=== PATIENT | female | born 1955 | race Caucasian/White ===

== ENCOUNTER 2021-05-11 15:52 | Emergency (ER) | payer MEDICARE ==
[2021-05-11] MEDS ORDERED: Sodium Chloride 0.9% 10 ML Syringe FLUSH PRN ×2 (17:44)
--- NOTE | 2021-05-11 17:51 | EDM.PDOC ---
<OfficerMiguel Angel - Last Filed: 05/11/21 18:24> ED HPI GENERAL MEDICAL PROBLEM - General Chief Complaint: Neuro Symptoms/Deficits Stated Complaint: NUMBNESS AND TINGLING Time Seen by Provider: 05/11/21 17:33 Source of Information: Reports: Patient, RN Notes Reviewed History Limitations: Reports: No Limitations - History of Present Illness INITIAL COMMENTS - FREE TEXT/NARRATIVE: 66-year-old female presents emergency department day with right facial numbness, she has a history of CVA related to chronic hypertension however she is never seen neurology no history of MRI completed this is per her history per her report. She states since last August she has had left-sided facial numbness and numbness and tingling in digits 2 and 3 with reduced strength. This morning at about 6 AM so approximately 12 hours prior she developed some numbness and tingling on the right side of her mouth and this is a progression from midline to the lateral aspect of her mouth however she has no focal neurologic deficit. Does admit to missing a few doses of Plavix - Related Data Allergies Allergy/AdvReac Type Severity Reaction Status Date / Time Penicillins Allergy Swelling Verified 09/24/14 07:24 Home Meds: Home Meds Aspirin [Ecotrin EC] 81 mg PO DAILY 05/11/21 [History] Clopidogrel [Plavix] 1 tab PO DAILY 05/11/21 [History] Fluticasone Propion/Salmeterol [Fluticasone-Salmeterol 250-50] 1 puff IH DAILY 05/11/21 [History] buPROPion HCL [Bupropion Xl] 1 tab PO DAILY 05/11/21 [History] lisinopriL [Lisinopril] 30 mg PO DAILY 05/11/21 [History] Past Medical History Cardiovascular History: Reports: High Cholesterol, Hypertension, PVD Respiratory History: Reports: COPD AUCTIONEER TOBACCO History: Reports: None Neurological History: Reports: CVA, TIA Psychiatric History: Reports: Addiction, Anxiety - Infectious Disease History Infectious Disease History: Reports: None - Past Surgical History Cardiovascular Surgical History: Reports: None, Other (See Below) Other Cardiovascular Surgeries/Procedures: stent behind right knee GI Surgical History: Reports: None Female Surgical History: Reports: None Dermatological Surgical History: Reports: None Social & Family History - Family History Family Medical History: No Pertinent Family History - Tobacco Use Tobacco Use Status *Q: Current Every Day Tobacco User Years of Tobacco use: 51 Packs/Tins Daily: 0.7 - Caffeine Use Caffeine Use: Reports: Coffee - Alcohol Use Number of Drinks Per Day: 7 - Recreational Drug Use Recreational Drug Use: No ED ROS GENERAL - Review of Systems Review Of Systems: See Below Constitutional: Reports: No Symptoms HEENT: Reports: No Symptoms Respiratory: Reports: No Symptoms Cardiovascular: Reports: No Symptoms GI/Abdominal: Reports: No Symptoms : Reports: No Symptoms Neurological: Reports: Numbness, Tingling ED EXAM, NEURO - Physical Exam Exam: See Below Exam Limited By: No Limitations General Appearance: Alert, WD/WN, No Apparent Distress Eye Exam: Bilateral Eye: EOMI, Normal Inspection, PERRL Throat/Mouth: Normal Inspection, Normal Lips, Normal Teeth, Normal Gums, Normal Oropharynx, Normal Voice, No Airway Compromise Head Exam: Atraumatic, Normocephalic Neck: Normal Inspection, Supple, Non-Tender, Full Range of Motion Respiratory/Chest: No Respiratory Distress, Lungs Clear, Normal Breath Sounds, No Accessory Muscle Use, Chest Non-Tender Cardiovascular: Regular Rate, Rhythm, No Murmur Neurological: Alert, Normal Mood/Affect, CN II-XII Intact, Normal Gait, No Motor/Sensory Deficits, Oriented x 3 #1 Interpretation EKG Date: 05/11/21 Time: 18:17 Rhythm: NSR [place]: Normal P-Wave: Present QRS: Normal ST-T: Normal QT: Normal Comparison: NA - No Prior EKG Departure - Departure Disposition: Home, Self-Care 01 Clinical Impression: Facial asymmetries, Hypertension - Discharge Information Instructions: Hypertension, Adult, [id number], Managing Your Hypertension, Transient Ischemic Attack, [id number] Referrals: Patrick Dahl MD [Primary Care Provider] - Forms: ED Department Discharge Additional Instructions: As discussed it is recommended that you follow-up with your primary care provider for further evaluation of today's neurological symptoms this may include an MRI of your brain Sepsis Event Note (ED) - Evaluation Sepsis Screening Result: No Definite Risk <Ayla Dawkins - Last Filed: 05/11/21 21:22> Course - Vital Signs Last Recorded V/S: Last Vital Signs Temp 97.6 F 05/11/21 17:14 Pulse 63 05/11/21 20:21 Resp 21 H 05/11/21 20:21 BP 183/76 H 05/11/21 20:21 Pulse Ox 98 05/11/21 20:21 - Orders/Labs/Meds Orders: Active Orders 24 hr Category Date Time Status EKG Documentation Completion [RC] ASDIRECTED Care 05/11/21 17:46 Active Peripheral IV Care [RC] . DIRECTED Care 05/11/21 17:46 Active Iopamidol [Isovue-370 (76%)] Med 05/11/21 19:00 Active 100 ml IV . DIRECTED Sodium Chloride 0.9% [Normal Saline] 100 ml Med 05/11/21 19:00 Active IV ASDIRECTED Sodium Chloride 0.9% [Saline Flush] Med 05/11/21 17:44 Active 10 ml FLUSH ASDIRECTED PRN Sodium Chloride 0.9% [Saline Flush] Med 05/11/21 17:44 Active 10 ml FLUSH ASDIRECTED PRN Peripheral IV Insertion Adult [OM.PC] Urgent Oth 05/11/21 17:44 Ordered EKG 12 Lead [EK] Stat Ther 05/11/21 17:44 Ordered Medication Orders Sodium Chloride (Normal Saline) 100 mls @ 3.5 mls/sec IV ASDIRECTED [facility] Last Admin: 05/11/21 20:35 Dose: 4 mls/sec Documented by: VU Iopamidol (Iopamidol 755 Mg/Ml 100 Ml Bottle) 100 ml IV . DIRECTED [facility] Last Admin: 05/11/21 20:35 Dose: 100 ml Documented by: VU Sodium Chloride (Sodium Chloride 0.9% 10 Ml Syringe) 10 ml FLUSH ASDIRECTED PRN PRN Reason: Keep Vein Open Last Admin: 05/11/21 18:01 Dose: 10 ml Documented by: ZECHARIAH Sodium Chloride (Sodium Chloride 0.9% 10 Ml Syringe) 10 ml FLUSH ASDIRECTED PRN PRN Reason: Keep Vein Open Last Admin: 05/11/21 18:01 Dose: 10 ml Documented by: ZECHARIAH Labs: Laboratory Tests 05/11/21 05/11/21 Range/Units 17:55 17:55 WBC 6.3 (4.5-11.0) K/uL RBC 4.75 (3.30-5.50) M/uL Hgb 14.6 (12.0-15.0) g/dL Hct 45.6 (36.0-48.0) % MCV 96 (80-98) fL MCH 31 (27-31) pg MCHC 32 (32-36) % Plt Count 184 (150-400) K/uL Neut % (Auto) 44.0 (36-66) % Lymph % (Auto) 42.1 (24-44) % [place] % (Auto) 10.4 H (2-6) % Eos % (Auto) 2.9 (2-4) % Baso % (Auto) 0.6 (0-1) % Sodium 144 (140-148) mmol/L Potassium 4.3 (3.6-5.2) mmol/L Chloride 106 (100-108) mmol/L Carbon Dioxide 30 (21-32) mmol/L Anion Gap 8.1 (5.0-14.0) mmol/L BUN 11 (7-18) mg/dL Creatinine 0.9 (0.6-1.0) mg/dL Est Cr Clr Drug Dosing 52.75 mL/min Estimated GFR (MDRD) > 60 (>60) Glucose 73 L (74-106) mg/dL Calcium 8.6 (8.5-10.1) mg/dL Total Bilirubin 0.3 (0.2-1.0) mg/dL AST 30 (15-37) U/L ALT 34 (12-78) U/L Alkaline Phosphatase 81 (46-116) U/L Troponin I < 0.017 (0.000-0.056) ng/mL Total Protein 6.4 (6.4-8.2) g/dL Albumin 3.7 (3.4-5.0) g/dL Globulin 2.7 (2.3-3.5) g/dL Albumin/Globulin Ratio 1.4 (1.2-2.2) Meds: Medications Generic Name Dose Route Start Last Admin Trade Name Freq PRN Reason Stop Dose Admin Sodium Chloride 100 mls @ 3.5 mls/sec 05/11/21 19:00 05/11/21 20:35 Normal Saline IV 4 mls/sec ASDIRECTED SHAMA Administration Iopamidol 100 ml 05/11/21 19:00 05/11/21 20:35 Iopamidol 755 Mg/Ml 100 Ml Bottle IV 100 ml . DIRECTED SHAMA Administration Sodium Chloride 10 ml 05/11/21 17:44 05/11/21 18:01 Sodium Chloride 0.9% 10 Ml Syringe FLUSH 10 ml ASDIRECTED PRN Administration Keep Vein Open Sodium Chloride 10 ml 05/11/21 17:44 05/11/21 18:01 Sodium Chloride 0.9% 10 Ml Syringe FLUSH 10 ml ASDIRECTED PRN Administration Keep Vein Open Discontinued Medications Generic Name Dose Route Start Last Admin Trade Name Kelly PRN Reason Stop Dose Admin Nitroglycerin 0.4 mg 05/11/21 18:37 05/11/21 20:19 Nitroglycerin 0.4 Mg Tab.Sl SL 05/11/21 18:38 Not Given ONETIME ONE Sodium Chloride 10 ml 05/11/21 18:57 05/11/21 20:35 Sodium Chloride 0.9% 10 Ml Syringe FLUSH 05/11/21 18:58 10 ml ONETIME ONE Administration - Radiology Interpretation Free Text/Narrative:: Full reports that are faxed and scanned into chart for CTA head and neck as well as CT head without contrast CT Results Date: 05/11/21 (CT head impression no CT evidence of acute intracranial abnormality) CT Results Time: 21:19 (CTA head and neck no acute occlusions stenosis or evidence of dissection or aneurysm identified) - Re-Assessments/Exams Free Text/Narrative Re-Assessment/Exam: 05/11/21 19:[address] Benson, ER at change of shift/transfer of care. CT Head/CTA Head-neck pending at this time. last known well is reported by Dr Benson to be 0600 today thus she is outside of window for intervention. If negative CT/CTA then outpatient f/u for further evaluation with PCM, if positive new finding on CT/CTA then transfer to higher level of care. 05/11/21 20:42 updated patient and family at bedside that labs have returned and been reviewed no Acute concerns are noted troponin is negative at this time we are waited for CT head and CTA of head and neck test has been performed we are waiting on radiology reading at this time 05/11/21 21:20 Roxane with patient and family at bedside today's ER findings recommendation for primary care follow-up to include further evaluation of today's symptoms which may include brain MRI and/or referral to neurology I also did discuss with her importance of medications on a regular basis to include her Plavix as well as smoking cessation patient family verbalized understanding agreement ready for discharge Departure - Departure Time of Disposition: 21:20 Condition: Good - Discharge Information *PRESCRIPTION DRUG MONITORING PROGRAM REVIEWED*: Not Applicable *COPY OF PRESCRIPTION DRUG MONITORING REPORT IN PATIENT RAHUL: Not Applicable Sepsis Event Note (ED) - Focused Exam Vital Signs: Vital Signs Temp Pulse Resp BP Pulse Ox 05/11/21 20:21 63 21 H 183/76 H 98 05/11/21 18:59 64 22 H 210/84 H 98 05/11/21 17:44 56 L 13 191/80 H 98 05/11/21 17:14 97.6 F 60 18 193/72 H 97
[2021-05-11] MEDS ORDERED: Nitroglycerin 0.4 MG Tab.SL SL ONE (18:37)
[2021-05-11] MEDS ORDERED: Iopamidol 755 Mg/ML 100 ML Bottle IV SCH (19:00)
[2021-05-11] MEDS ORDERED: Sodium Chloride 0.9% 100 ML IV SCH (19:00)
[2021-05-11] MEDS: Sodium Chloride 0.9% 10 ML Syringe FLUSH ONE ×2 (20:19→20:35)
--- NOTE | 2021-05-11 20:58 | CRLCT ---
For Patients: As a result of the Century Cures Act, medical imaging exams and procedure reports are released immediately into your electronic medical record. You may view this report before your referring provider. If you have questions, please contact your health care provider. INDICATION: Right-sided facial numbness. TECHNIQUE: Axial images. Sagittal and coronal reconstructions. COMPARISON: 12/16/2020. FINDINGS: There is no abnormal intracranial mass effect or midline shift. No acute intracranial hemorrhage. Mild periventricular white matter changes are likely related to chronic small vessel disease. Small lacunar infarcts are again seen in the right side of the thalamus and basal ganglia. There is no appreciable loss of the normal [place]ail-white matter differentiation. CSF spaces are age-appropriate. No acute osseous abnormality. The visualized portions of the paranasal sinuses and mastoids are clear. IMPRESSION: No CT evidence of an acute intracranial abnormality. Dictated by Maximiliano Garcia MD @ 05/11/2021 8:55:38 PM Please note that all CT scans at this facility use dose modulation, iterative reconstruction, and/or weight-based dosing when appropriate to reduce radiation dose to as low as reasonably achievable. Dictated by: Maximiliano Garcia MD @ 05/11/2021 20:56:28 (Electronically Signed)
--- NOTE | 2021-05-11 21:14 | CRLCT ---
For Patients: As a result of the Century Cures Act, medical imaging exams and procedure reports are released immediately into your electronic medical record. You may view this report before your referring provider. If you have questions, please contact your health care provider. DATE: 05/11/2021 CLINICAL HISTORY: Patient with right facial numbness. TECHNIQUE: Standard helical CT image acquisition through the head and neck was performed after intravenous contrast bolus enhancement. Multiplanar reconstructed images were performed and interpreted. COMPARISON: CT same day FINDINGS: The origins of the great vessels from the aortic arch are patent. The origin of the right vertebral artery demonstrates moderate narrowing. The origin of the left vertebral artery demonstrates moderate narrowing. The common carotid arteries are patent There is a mild (<50%) stenosis at the origin of the right internal carotid artery by NASCET criteria. This is caused by calcified plaque with a <2mm residual lumen. There is plaques without stenosis at the origin of the left internal carotid artery by NASCET criteria. The rest of the cervical segments of the internal carotid arteries are patent up to their intracranial segments. The intracranial segments of the internal carotid arteries are patent. The vertebral arteries are codominant. The cervical segments of the vertebral arteries are patent. The intracranial segments of the vertebral arteries are patent. There is mild to moderate diffuse intracranial atherosclerosis. The visualized lung apices demonstrate emphysematous changes. The thyroid gland is unremarkable. The soft tissues of the neck are unremarkable. There are degenerative changes in the cervical spine. IMPRESSION: 1. No proximal intracranial large vessel occlusion. 1. Mild to moderate diffuse intracranial atherosclerosis. 3. Mild (<50%) stenosis at the origin of the right internal carotid artery by NASCET criteria caused by calcified plaque with a <2mm residual lumen. 4. Moderate bilateral vertebral artery origin stenosis. Please note that all CT scans at this facility use dose modulation, iterative reconstruction, and/or weight-based dosing when appropriate to reduce radiation dose to as low as reasonably achievable. Dictated by Qi Haq MD @ 05/11/2021 10:21:[address] Qi Haq @ May 11 2021 10:21PM
== END 2021-05-11 21:34 | disposition home or self-care (01) ==
LOC: JP.ED 15:52
DX: I10 Essential (primary) hypertension (principal); J44.9 Chronic obstructive pulmonary disease, unspecified; Z86.73 Personal history of transient ischemic attack (TIA), and cerebral infarction without residual deficits; Z79.82 Long term (current) use of aspirin; Z79.02 Long term (current) use of antithrombotics/antiplatelets; Z79.899 Other long term (current) drug therapy; Z72.0 Tobacco use; Z88.0 Allergy status to penicillin; Q67.0 Congenital facial asymmetry
CPT/HCPCS: 36415; 70450; 70496; 70498; 80053; 84484; 85025; 93005; 99284; Q9967

== ENCOUNTER → 2023-04-06 | Day surgery (SDC) | payer MEDICARE ==
[~2023-04-06] MED LIST: Sodium Chloride 0.9% 10 ML Syringe FLUSH PRN
== END ==
LOC: JP.SDS 09:23
PROVIDERS: ATTEND Ophthalmology
DX: H26.9 Unspecified cataract (principal); Z79.899 Other long term (current) drug therapy
CPT/HCPCS: 66984; J3490

== ENCOUNTER 2023-06-22 08:00 | Day surgery (SDC) | payer MEDICARE ==
[2023-06-22] MEDS ORDERED: Sodium Chloride 0.9% 10 ML Syringe FLUSH PRN (08:15)
== END 2023-06-22 09:30 | disposition home or self-care (01) ==
LOC: JP.SDS 08:00
PROVIDERS: ATTEND Ophthalmology
DX: H26.9 Unspecified cataract (principal); J44.9 Chronic obstructive pulmonary disease, unspecified; F17.200 Nicotine dependence, unspecified, uncomplicated
CPT/HCPCS: 66984; J3490

== ENCOUNTER 2023-12-01 06:46 | Day surgery (SDC) | payer MEDICARE ==
[2023-12-01] MEDS ORDERED: Propofol 200 MG/20 ML SDV ONE (07:27)
[2023-12-01] MEDS ORDERED: fentaNYL 100 MCG/2 ML SDV ONE (07:27)
[2023-12-01] MEDS: Sodium Chloride 0.9% 1,000 ML IV SCH (07:38)
== END 2023-12-01 10:00 | disposition home or self-care (01) ==
LOC: JP.SDS 06:46
PROVIDERS: ATTEND Surgery
DX: D12.0 Benign neoplasm of cecum (principal); I10 Essential (primary) hypertension; J44.9 Chronic obstructive pulmonary disease, unspecified; F17.200 Nicotine dependence, unspecified, uncomplicated
CPT/HCPCS: 88305; J2704; J3010; J7030

== ENCOUNTER 2024-02-16 09:41 | Emergency (ER) | payer MEDICARE ==
[2024-02-16 11:06] LABS: BASOPHILS PERCENT AUTO 0.2 % (0.1-1.3); EOSINOPHILS ABSOLUTE AUTO 0.24 K/uL (0.00-0.40); HEMATOCRIT 34.8 % (34.3-46.0); HEMOGLOBIN 11.1 g/dL (11.2-15.5); IMMATURE GRAN PERCENT AUTO 0.2 % (0.0-0.7); LYMPHOCYTES ABSOLUTE AUTO 1.47 K/uL (0.8-3.3); LYMPHOCYTES PERCENT AUTO 18.4 % (11.4-47.7); MEAN CORPUSCULAR HEMOGLOBIN 30.2 pg (31.6-35.5); MEAN CORPUSCULAR HGB CONC 31.9 g/dL (31.6-35.5); MEAN CORPUSCULAR VOLUME 94.6 fL (81.4-99.0); MONOCYTES PERCENT AUTO 8.7 % (3.3-12.6); NEUTROPHILS ABSOLUTE AUTO 5.56 K/uL (1.0-7.6); NEUTROPHILS PERCENT AUTO 69.5 % (40.0-78.1); PLATELET COUNT,PLT 180 K/uL (130-375); RED BLOOD CELL COUNT 3.68 M/uL (3.77-5.24)
[2024-02-16 11:12] LABS: BASOPHILS ABSOLUTE AUTO 0.02 K/uL (0.00-0.10); IMMATURE GRAN ABSOLUTE AUTO 0.02 K/uL (0.00-0.23)
[2024-02-16 11:24] LABS: INR 0.9; PROTHROMBIN TIME 9.4 sec (9.2-10.6)
== END 2024-02-16 12:13 | disposition home or self-care (01) ==
LOC: JP.ED 09:41
DX: I95.1 Orthostatic hypotension (principal); I10 Essential (primary) hypertension; E78.00 Pure hypercholesterolemia, unspecified; J44.9 Chronic obstructive pulmonary disease, unspecified; Z88.0 Allergy status to penicillin; Z88.1 Allergy status to other antibiotic agents; Z86.73 Personal history of transient ischemic attack (TIA), and cerebral infarction without residual deficits; Z86.16 Personal history of COVID-19; Z79.82 Long term (current) use of aspirin; Z79.51 Long term (current) use of inhaled steroids; Z79.899 Other long term (current) drug therapy
CPT/HCPCS: 36415; 85025; 85610; 99284

== ENCOUNTER 2024-07-04 15:56 | Emergency (ER) | payer MEDICARE ==
[2024-07-04] MEDS: Albuterol/Ipratropium 3.0-0.5 MG/3 ML Neb Soln NEB ONE (16:58)
== END 2024-07-04 17:41 | disposition home or self-care (01) ==
LOC: JP.ED 15:56
DX: J44.1 Chronic obstructive pulmonary disease with (acute) exacerbation (principal); I10 Essential (primary) hypertension; E78.00 Pure hypercholesterolemia, unspecified; J44.9 Chronic obstructive pulmonary disease, unspecified; F17.210 Nicotine dependence, cigarettes, uncomplicated; Z86.16 Personal history of COVID-19; Z79.82 Long term (current) use of aspirin; Z79.899 Other long term (current) drug therapy; Z79.52 Long term (current) use of systemic steroids; Z79.2 Long term (current) use of antibiotics; Z79.51 Long term (current) use of inhaled steroids; Z88.0 Allergy status to penicillin; Z88.1 Allergy status to other antibiotic agents
CPT/HCPCS: 94640; 99284; J7620

== ENCOUNTER 2024-07-24 10:13 | Inpatient (IN) | payer MEDICARE ==
[2024-07-24] MEDS: Sodium Chloride 0.9% 1,000 ML IV ONE (11:20)
[2024-07-24 11:22] LABS: BASOPHILS ABSOLUTE AUTO 0.04 K/uL (0.00-0.10); BASOPHILS PERCENT AUTO 0.4 % (0.1-1.3); EOSINOPHILS ABSOLUTE AUTO 0.14 K/uL (0.00-0.40); EOSINOPHILS PERCENT AUTO 1.5 % (0.0-5.4); HEMATOCRIT 38.5 % (34.3-46.0); HEMOGLOBIN 13.1 g/dL (11.2-15.5); IMMATURE GRAN ABSOLUTE AUTO 0.07 K/uL (0.00-0.23); IMMATURE GRAN PERCENT AUTO 0.7 % (0.0-0.7); LYMPHOCYTES ABSOLUTE AUTO 1.03 K/uL (0.8-3.3); LYMPHOCYTES PERCENT AUTO 10.7 % (11.4-47.7); MEAN CORPUSCULAR HEMOGLOBIN 30.9 pg (31.6-35.5); MEAN CORPUSCULAR VOLUME 90.8 fL (81.4-99.0); MONOCYTES ABSOLUTE AUTO 1.17 K/uL (0.20-0.90); MONOCYTES PERCENT AUTO 12.2 % (3.3-12.6); NEUTROPHILS ABSOLUTE AUTO 7.15 K/uL (1.0-7.6); NEUTROPHILS PERCENT AUTO 74.5 % (40.0-78.1); PLATELET COUNT,PLT 305 K/uL (130-375); RED BLOOD CELL COUNT 4.24 M/uL (3.77-5.24); WHITE BLOOD CELL COUNT,WBC 9.6 K/uL (3.2-11.0)
[2024-07-24 11:42] LABS: A/G RATIO 0.6 (1.2-2.2); ALANINE AMINOTRANSFERASE,ALT 19 U/L (12-78); ALBUMIN 2.6 g/dL (3.4-5.0); ALKALINE PHOSPHATASE 109 U/L (46-116); ASPARTATE AMNIOTRANSFERASE,AST 24 U/L (15-37); BILIRUBIN TOTAL 0.4 mg/dL (0.2-1.0); BLOOD UREA NITROGEN,BUN 10 mg/dL (7-18); CALCIUM 9.2 mg/dL (8.5-10.1); CARBON DIOXIDE,CO2 30 mmol/L (21-32); CHLORIDE,CL 98 mmol/L (100-108); CREATININE 0.9 mg/dL (0.6-1.0); EST CRCL DRUG DOSING (CG) 47.43 mL/min; ESTIMATED GFR 68 mL/min (>60); GLUCOSE RANDOM 105 mg/dL (74-106); POTASSIUM,K 3.9 mmol/L (3.6-5.2); SODIUM,NA 138 mmol/L (140-148)
[2024-07-24 11:43] LABS: ANION GAP 13.9 mmol/L (5.0-14.0)
[2024-07-24] MEDS: Iopamidol 612 MG/ML 100 ML Bottle IV PRN (11:59)
[2024-07-24] MEDS: Sodium Chloride 0.9% 100 ML IV SCH (11:59)
[2024-07-24] MEDS: Sodium Chloride 0.9% 10 ML SDV FLUSH ONE (11:59)
[2024-07-24 12:37] LABS: APPEARANCE,URINE SLIGHTLY CLOUDY (CLEAR); BILIRUBIN,URINE NEGATIVE (NEGATIVE); COLOR,URINE YELLOW (YELLOW); GLUCOSE,URINE NEGATIVE (NEGATIVE); KETONES,URINE 15 mg/dL (NEGATIVE); LEUKOCYTE ESTERASE,URINE SMALL (NEGATIVE); NITRITE,URINE POSITIVE (NEGATIVE); OCCULT BLOOD,URINE TRACE-INTACT (NEGATIVE); PH,URINE 6.5 (5.0-8.0); PROTEIN,URINE NEGATIVE (NEGATIVE); UROBILINOGEN,URINE 0.2 EU/dL (0.2-1.0)
[2024-07-24 12:43] LABS: AMORPHOUS SEDIMENT,URINE FEW; BACTERIA,URINE MANY; EPITHELIAL CELLS,URINE NOT SEEN; MUCUS,URINE NOT SEEN; RBC,URINE 0-5 (0-5); WBC,URINE 20-30 (0-5)
[2024-07-24] MEDS: Sodium Chloride 0.9% 1,000 ML IV SCH ×2 (13:22→21:16)
[2024-07-24] MEDS: cefTRIAXone 2 GM in Sodium Chloride 0.9% 50 ML IV ONE (13:22)
[2024-07-24] MEDS ORDERED: HYDROmorphone 1 MG/ML Syringe IVPUSH PRN (20:19)
[2024-07-24] MEDS ORDERED: Ondansetron 4 MG Tab.DIS PO PRN (20:19)
[2024-07-24] MEDS: Melatonin 3 MG Tab PO PRN (21:15)
[2024-07-24] MEDS: Lactobacillus Rhamnosus GG (Probiotic) Cap PO SCH (21:16)
[2024-07-24] MEDS: Albuterol/Ipratropium 3.0-0.5 MG/3 ML Neb Soln NEB SCH (21:16)
[2024-07-25 05:32] LABS: HEMATOCRIT 33.6 % (34.3-46.0); HEMOGLOBIN 11.5 g/dL (11.2-15.5); MEAN CORPUSCULAR HEMOGLOBIN 30.8 pg (31.6-35.5); MEAN CORPUSCULAR HGB CONC 34.2 g/dL (31.6-35.5); MEAN CORPUSCULAR VOLUME 90.1 fL (81.4-99.0); RED BLOOD CELL COUNT 3.73 M/uL (3.77-5.24); WHITE BLOOD CELL COUNT,WBC 9.1 K/uL (3.2-11.0)
[2024-07-25 05:52] LABS: ANION GAP 13.4 mmol/L (5.0-14.0); CALCIUM 8.5 mg/dL (8.5-10.1); CREATININE 0.6 mg/dL (0.6-1.0); EST CRCL DRUG DOSING (CG) 71.14 mL/min; POTASSIUM,K 3.4 mmol/L (3.6-5.2)
[2024-07-25] MEDS: Albuterol/Ipratropium 3.0-0.5 MG/3 ML Neb Soln NEB SCH (07:00)
[2024-07-25 09:54] LABS: PROTHROMBIN TIME 10.4 sec (9.2-10.6); PTT,PARTIAL THROMBOPLSTIN TIME 27.5 sec (21.8-27.3)
[2024-07-25] MEDS ORDERED: Midazolam 1 MG/ML 2 ML SDV IVPUSH ONE (10:15)
[2024-07-25] MEDS ORDERED: Flumazenil 0.1 MG/ML 5 ML MDV IVPUSH PRN (10:30)
[2024-07-25] MEDS ORDERED: Naloxone 0.4 MG/ML SDV IVPUSH PRN (10:30)
[2024-07-25] MEDS: fentaNYL 100 MCG/2 ML SDV IVPUSH ONE (11:31)
[2024-07-25] MEDS: Midazolam 1 MG/ML 5 ML SDV IVPUSH ONE (11:31)
[2024-07-25] MEDS: amLODIPine 5 MG Tab PO SCH (11:55)
[2024-07-25] MEDS: buPROPion 150 MG Tab.ER PO SCH (11:55)
[2024-07-25] MEDS: Lidocaine 1% 20 ML MDV INJECT ONE (11:55)
[2024-07-25] MEDS: cefTRIAXone 1 GM in Sodium Chloride 0.9% 50 ML IV SCH (13:07)
[2024-07-25] MEDS: Sennosides/Docusate Sodium 50-8.6 MG Tab PO PRN (13:52)
[2024-07-25] MEDS ORDERED: cefTRIAXone 1 GM in Sodium Chloride 0.9% 50 ML IV SCH (18:30)
[2024-07-25] MEDS: Potassium Chloride 20 MEQ Tab.ER PO ONE (18:31)
[2024-07-25] MEDS: Acetaminophen 325 MG Tab PO PRN (18:35)
[2024-07-25] MEDS ORDERED: oxyCODONE 5 MG Tab PO PRN (19:31)
[2024-07-25] MEDS: Rosuvastatin 5 MG Tab PO SCH (20:13)
[2024-07-26 06:25] LABS: CALCIUM 8.5 mg/dL (8.5-10.1); CREATININE 0.7 mg/dL (0.6-1.0); EST CRCL DRUG DOSING (CG) 60.98 mL/min; POTASSIUM,K 3.5 mmol/L (3.6-5.2)
[2024-07-26 06:45] LABS: ANION GAP 12.5 mmol/L (5.0-14.0)
[2024-07-26] MEDS: Potassium Chloride 20 MEQ Tab.ER PO ONE (08:34)
[2024-07-26] MEDS: Ondansetron 4 MG/2 ML SDV IV PRN (12:36)
== END 2024-07-27 13:15 | disposition home or self-care (01) | DRG 690 ==
LOC: JP.ED 10:13 → JP.MS 19:30
PROVIDERS: ADMIT Hospitalist; ATTEND Hospitalist
DX: N28.1 Cyst of kidney, acquired (principal); N10 Acute pyelonephritis; N15.1 Renal and perinephric abscess; F17.200 Nicotine dependence, unspecified, uncomplicated; I10 Essential (primary) hypertension; E78.00 Pure hypercholesterolemia, unspecified; I73.9 Peripheral vascular disease, unspecified; J44.9 Chronic obstructive pulmonary disease, unspecified; H54.7 Unspecified visual loss; F41.8 Other specified anxiety disorders; F17.210 Nicotine dependence, cigarettes, uncomplicated; Z88.0 Allergy status to penicillin; Z88.1 Allergy status to other antibiotic agents; Z86.73 Personal history of transient ischemic attack (TIA), and cerebral infarction without residual deficits; Z86.16 Personal history of COVID-19; Z79.82 Long term (current) use of aspirin; Z98.49 Cataract extraction status, unspecified eye; Z98.51 Tubal ligation status; Z79.899 Other long term (current) drug therapy; Z98.890 Other specified postprocedural states
CPT/HCPCS: 36415; 74177 ×2; 80053; 81001; 83605; 83690; 84145; 85025; 87040 ×2; 96361; 96365; 99284; 99285; J0696; J3490 ×3; J7030 ×2; Q9967; 49405; 77012; 77012-26; 80048; 84132; 85027; 85610; 85730; 87070; 87077; 87086; 87088; 87186; 87205; 88112; 88305; 94640; 99222; 99232; 99238; A9270-GY; C1729; C1769; J2250; J2405; J3010; J7620